=== PATIENT | male | born 1945 | race Caucasian/White ===

== ENCOUNTER 2016-08-26 14:34 | Day surgery (SDC) | payer OTHER ==
[~2016-08-26 14:34] MED LIST: ADVAI250I PO; ALPR.25 PO; CARV12.5 PO; NORC7.5T PO; RAMI5CAP36 PO
[2016-08-26 14:59] VITALS: BP 145/84; PULSE 66; RESP 18; TEMP 98; O2SAT 97
[2016-08-26] MEDS ORDERED: ADVA250A INH (15:05)
[2016-08-26] MEDS ORDERED: ASPI81CH37 CHEW (15:05)
[2016-08-26] MEDS ORDERED: ALPR.25 PO (15:05)
[2016-08-26] MEDS ORDERED: CARV12.5 PO (15:05)
[2016-08-26] MEDS ORDERED: HYDR-3580 PO (15:05)
[2016-08-26] MEDS ORDERED: RAMI5CAP PO (15:05)
--- NOTE | 2016-08-26 18:10 | RADRPT ---
EXAM DATE/TIME: 08/26/2016 14:59 [facility] COMPARISON : No previous studies available for comparison. INDICATIONS : Consult for AAA repair OBJECTIVE: Temperature: 98.0 Heart Rate: 66 Blood Pressure: 145/84 Respiratory: 18 Oximetry: 97 PNEUMONIA VACCINE: YES HISTORY OF PRESENT ILLNESS: Abdominal aortic aneurysm, reportedly increased in size from comparison CT exams. PAST MEDICAL HISTORY : 1. Hypertension. 2. Cardiovascular disease. 3. Congestive heart failure. 4. Chronic obstructive pulmonary disease, oxygen dependent 5. Aneurysm, abdominal. PAST SURGICAL HISTORY : 1. pacemaker SOCIAL HISTORY : ALLERGIES: 1. NKDA MEDICATIONS: 1. [id number] mg q.d. 2. xanax 0.25 mg prn 3. Coreg (Carvedilol) 12.5 mg b.i.d. 4. advair diskus 1 puff b.i.d. 5. norco 1 tab prn 6. ramipril 5 mg b.i.d. IMAGING STUDIES: CT examination of the abdomen and pelvis from [facility] reveals a 5.5 cm abdominal aortic aneurysm with a couple of areas of focal lobular outpouching superimposed upon diffuse fusiform dilat ation of the infrarenal segment. The patient has a sizable accessory renal artery providing flow to t he left kidney arising at the midportion of the aneurysm. This vessel would need to be sacrificed for aneurysm repair. ASSESSMENT: Patient with significant cardiac and pulmonary history, oxygen dependent with a pacemaker. The patien t has additionally had anesthesia problems in the past. The patient has some degree of baseline renal insufficiency and we will need to sacrifice one of 2 left renal arteries in order to adequately excl ude his aneurysm. These things considered, I think he's at very high risk for significant morbidity a ssociated with aneurysm repair. PLAN: I would recommend short interval followup noncontrast CT examination of the abdomen and pelvis in 2-3 months to reassess the aneurysm for changes in size and configuration which might additionally eleva te our concern for rupture risk. Hopefully, the patient will remain stable and not require treatment. Thanks very much, Dr. Patrick, for asking me to assist in the care of this pleasant gentleman. Donald Granger MD on August 26, 2016 at 17:48 Board Certified Radiologist. This report was verified electronically.
== END 2016-08-26 15:40 | disposition home or self-care (01) ==
LOC: HROP 14:34 → HRIP 14:38 → HROP 15:40
DX: I71.4 Abdominal aortic aneurysm, without rupture (principal); I11.0 Hypertensive heart disease with heart failure; I50.9 Heart failure, unspecified; J44.9 Chronic obstructive pulmonary disease, unspecified; Z99.81 Dependence on supplemental oxygen
CPT/HCPCS: 99213; G0463

== ENCOUNTER 2016-10-25 17:07 | Observation (INO) | payer OTHER, MEDICAID ==
[~2016-10-25] VITALS: Ht 177.8 cm; Wt 80.0 kg
[~2016-10-25 17:07] MED LIST changes: +ADVA250A INH; -ADVAI250I PO; +ASPI81CH37 CHEW; +HYDR-3580 PO; +IOHEXOL 350 MG/ML 10 ML VIAL (for RAD DIAG) IVCONTRAST ONE; -NORC7.5T PO; +RAMI5CAP PO; -RAMI5CAP36 PO
[2016-10-25 17:15] VITALS: BP 139/60; PULSE 72; RESP 18; TEMP 98.1; O2SAT 98
[2016-10-25 17:22] VITALS: BP 147/65; PULSE 71; RESP 18; TEMP 98.6; O2SAT 100
[2016-10-25 17:29] VITALS: BP_SYST 147; BP_SYST 167; BP_DIAS 65; BP_DIAS 67; PULSE 67; RESP 18; O2SAT 100
[2016-10-25] MEDS ORDERED: SODIUM CHLORIDE 0.9% FLUSH 10 ML FLUSH IVF PRN (17:30)
[2016-10-25] MEDS ORDERED: ASPIRIN 81 MG CHEW TAB PO ONE (17:30)
[2016-10-25] MEDS ORDERED: NITROGLYCERIN 2% OINT 1 GM PACKET TOP ONE (17:30)
--- NOTE | 2016-10-25 18:06 | PD ---
HPI Chief Complaint: Chest Pain Time Seen by Provider: 17:17 Travel History International Travel<30 days: No Contact w/Intl Traveler<30days: No Traveled to known affect area: No History of Present Illness HPI Patient is a 70-year-old male with a history of coronary disease pacemaker followed by Dr. Cevallos presents emergency Department with chest pain intermittent states feels like squeezing on the left side of his chest down to his left shoulder. Patient states the pain was so intense that he had a syncopal episode yesterday. On arrival the patient states she's not having any chest pain. He states pain is been relieved by resting, with no shortness of breath no nausea no vomiting. States he also has a history of an aortic aneurysm. Denies any fever denies any cough congestion. Cannot think of any exacerbating conditions. PFSH Past Medical History Hx Anticoagulant Therapy: Yes AAA: Yes Cardiac Catheterization: Yes Cardiovascular Problems: Yes COPD: Yes Respiratory: Yes (COPD) Past Surgical History Other Surgery: Yes (PACEMAKER ) Social History Alcohol Use: No Tobacco Use: No Substance Use: No Allergies-Medications (Allergen,Severity, Reaction): Coded Allergies: No Known Allergies (Unverified , 10/25/16) Reported Meds & Prescriptions Reported Meds & Active Scripts Active Reported Ramipril 5 Mg Cap 5 Mg PO BID Hydrocodone-Acetaminophen 7.5-325 mg Tab 1 Tab PO Q6H PRN Advair Diskus Inh (Fluticasone-Salmeterol Inh) 250-50 Mcg/Blist Aer 1 Puff INH BID Rinse mouth after use. Coreg (Carvedilol) 12.5 Mg Tab 12.5 Mg PO BID Xanax (Alprazolam) 0.25 Mg Tab 0.25 Mg PO TID PRN Aspirin Low Dose (Aspirin) 81 Mg Chew 81 Mg CHEW DAILY Review of Systems Except as stated in HPI: all other systems reviewed are Neg Physical Exam Narrative GENERAL: Well-developed well-nourished, elderly male in no obvious distress. SKIN: Focused skin assessment warm/dry. HEAD: Atraumatic. Normocephalic. EYES: Pupils equal and round. No scleral icterus. No injection or drainage. ENT: No nasal bleeding or discharge. Mucous membranes pink and moist. NECK: Trachea midline. No JVD. CARDIOVASCULAR: Regular rate and rhythm. No murmur appreciated. Left-sided pacemaker site clean dry and intact and well-healed. 2+ bilaterally equal pulses in all 4 extremity's. RESPIRATORY: No accessory muscle use. Clear to auscultation. Breath sounds equal bilaterally. GASTROINTESTINAL: Abdomen soft, non-tender, nondistended. Hepatic and splenic margins not palpable. MUSCULOSKELETAL: No obvious deformities. No clubbing. No cyanosis. Trace edema equal and bilateral lower extremities. NEUROLOGICAL: Awake and alert. No obvious cranial nerve deficits. Motor grossly within normal limits. Normal speech. PSYCHIATRIC: Appropriate mood and affect; insight and judgment normal. Data Data Last Documented VS Vital Signs Date Time Temp Pulse Resp B/P (MAP) Pulse Ox O2 Delivery O2 Flow Rate FiO2 10/25/16 17:29 67 18 147/65 (92) 100 Nasal Cannula 3.50 167/67 (100) 10/25/16 17:22 98.6 Orders Orders Electrocardiogram (10/25/16 17:26) Basic Metabolic Panel (Bmp) (10/25/16 17:26) Ckmb (Isoenzyme) Profile (10/25/16 17:26) Complete Blood Count With Diff (10/25/16 17:26) Magnesium (Mg) (10/25/16 17:26) Prothrombin Time / Inr (Pt) (10/25/16 17:26) Act Partial Throm Time (Ptt) (10/25/16 17:26) Troponin I (10/25/16 17:26) Chest, Single Ap (10/25/16 17:26) Ecg Monitoring (10/25/16 17:26) Bilateral Bp Monitoring (10/25/16 17:26) Iv Access Insert/Monitor (10/25/16 17:26) Oximetry (10/25/16 17:26) Oxygen Administration (10/25/16 17:26) Aspirin Chew (Aspirin Chew) (10/25/16 17:30) Nitroglycerin 2% Oint (Nitroglycerin 2% (10/25/16 17:30) Sodium Chloride 0.9% Flush (Ns Flush) (10/25/16 17:30) Activity Bed Rest With Brp (10/25/16 18:52) Vital Signs (Adult) Q4H (10/25/16 18:52) Cardiac Rhythm .As Directed (10/25/16 18:52) Notify Dr: Other .PRN (10/25/16 18:52) Notify Parameters (10/25/16 18:52) Resp Oxygen Nasal Cannula (10/25/16 ) Diet Heart Healthy (10/25/16 Dinner) Ckmb (Isoenzyme) Profile (10/25/16 21:00) Ckmb (Isoenzyme) Profile (10/26/16 00:00) Troponin I (10/25/16 21:00) Troponin I (10/26/16 00:00) Electrocardiogram (10/25/16 21:00) Electrocardiogram (10/26/16 00:00) ^ Obtain (10/25/16 18:52) Sodium Chloride 0.9% Flush (Ns Flush) (10/25/16 19:00) Sodium Chloride 0.9% Flush (Ns Flush) (10/25/16 21:00) Email Specialist / Telemetry [id number] (10/25/16 18:52) Admit Order (Ed Use Only) (10/25/16 ) Labs Laboratory Tests Test 10/25/16 17:30 White Blood Count 4.5 TH/MM3 Red Blood Count 3.47 MIL/MM3 Hemoglobin 11.1 GM/DL Hematocrit 33.4 % Mean Corpuscular Volume 96.2 FL Mean Corpuscular Hemoglobin 32.1 PG Mean Corpuscular Hemoglobin Concent 33.4 % Red Cell Distribution Width 13.1 % Platelet Count 176 TH/MM3 Mean Platelet Volume 8.0 FL Neutrophils (%) (Auto) 59.9 % Lymphocytes (%) (Auto) 25.4 % Monocytes (%) (Auto) 10.1 % Eosinophils (%) (Auto) 3.6 % Basophils (%) (Auto) 1.0 % Neutrophils # (Auto) 2.7 TH/MM3 Lymphocytes # (Auto) 1.1 TH/MM3 Monocytes # (Auto) 0.5 TH/MM3 Eosinophils # (Auto) 0.2 TH/MM3 Basophils # (Auto) 0.0 TH/MM3 CBC Comment DIFF FINAL Differential Comment Prothrombin Time 11.5 SEC Prothromb Time International Ratio 1.0 RATIO Activated Partial Thromboplast Time 29.9 SEC Blood Urea Nitrogen 21 MG/DL Creatinine 0.97 MG/DL Random Glucose 84 MG/DL Calcium Level 8.0 MG/DL Magnesium Level 1.8 MG/DL Sodium Level 141 MEQ/L Potassium Level 3.4 MEQ/L Chloride Level 100 MEQ/L Carbon Dioxide Level 36.8 MEQ/L Anion Gap 4 MEQ/L Estimat Glomerular Filtration Rate 76 ML/MIN Total Creatine Kinase 42 U/L Troponin I 0.02 NG/ML MDM Medical Decision Making Medical Screen Exam Complete: Yes Emergency Medical Condition: Yes Interpretation(s) EKG shows AV paced rhythm. Differential Diagnosis ACS, AMI, chest wall pain, pneumonia. Narrative Course Patient roomed in emergency department, chest pain-free on arrival was given aspirin and Nitropaste. Last 24 hours Impressions Chest X-Ray 10/25/16 1726 Signed Impressions: Service Date/Time: Tuesday, October 25, 2016 18:21 - CONCLUSION: No acute cardiopulmonary disease identified. Darrick Mcghee MD Patient initial workup including troponin EKG negative. will place orders for chest pain observation. Diagnosis Primary Impression: Chest pain Admitting Information Admitting Physician Requests: Observation Condition: Stable Harish Montoya MD Oct 25, 2016 18:06
[2016-10-25 18:17] LABS: AUTOMATED NEUTROPHIL # 2.7 TH/MM3 (1.8-7.7); EOSINOPHIL # 0.2 TH/MM3 (0-0.4); EOSINOPHIL % 3.6 % (0.0-4.0); HEMATOCRIT 33.4 % (39.0-51.0); LYMPH % 25.4 % (9.0-44.0); LYMPHOCYTE # 1.1 TH/MM3 (1.0-4.8); MEAN CELL VOLUME 96.2 FL (80.0-100.0); MEAN CORPUSCULAR HEMOGLOBIN 32.1 PG (27.0-34.0); MEAN CORPUSCULAR HGB CONC 33.4 % (32.0-36.0); MONO % 10.1 % (0.0-8.0); NEUT % 59.9 % (16.0-70.0); PLATELET COUNT 176 TH/MM3 (150-450); RED BLOOD COUNT 3.47 MIL/MM3 (4.50-5.90); RED CELL DISTRIBUTION WIDTH 13.1 % (11.6-17.2); WHITE BLOOD COUNT 4.5 TH/MM3 (4.0-11.0)
[2016-10-25 18:18] LABS: HEMO FLAGS DIFF FINAL
--- NOTE | 2016-10-25 18:27 | RADRPT ---
EXAM DATE/TIME: 10/25/2016 18:21 [facility] COMPARISON: No previous studies available for comparison. INDICATIONS : Chest pain and shortness of breath. MEDICAL HISTORY : None. SURGICAL HISTORY : Pacemaker. Cardiac stent. ENCOUNTER: Initial ACUITY: 4 - 6 days PAIN SCORE: 6/10 LOCATION: chest FINDINGS: Single AP view of the chest. AICD is in place. Surgical hardware in the left humerus. The lungs are c lear. Cardiomediastinal silhouette within normal limits. No evidence of pleural effusion or pneumotho rax. CONCLUSION: No acute cardiopulmonary disease identified. Darrick Mcghee MD on October 25, 2016 at 18:25 Board Certified Radiologist. This report was verified electronically.
[2016-10-25 18:28] LABS: BICARBONATE 36.8 MEQ/L (21.0-32.0); MAGNESIUM 1.8 MG/DL (1.5-2.5); POTASSIUM 3.4 MEQ/L (3.5-5.1)
[2016-10-25 18:29] LABS: APTT (PATIENT) 29.9 SEC (24.3-30.1); PROTHROMBIN TIME - PATIENT 11.5 SEC (9.8-11.6)
[2016-10-25] MEDS ORDERED: SODIUM CHLORIDE 0.9% FLUSH 10 ML FLUSH IV FLUSH PRN (19:00)
[2016-10-25 19:26] VITALS: BP 187/81; PULSE 65; RESP 18; TEMP 98.7; O2SAT 98
[2016-10-25 20:16] VITALS: BP 181/79; PULSE 81; RESP 18; TEMP 98.1; O2SAT 97
[2016-10-25] MEDS ORDERED: RAMIPRIL 5 MG CAP PO SCH (21:00)
[2016-10-25] MEDS: CARVEDILOL 12.5 MG TAB PO SCH (21:00)
[2016-10-25] MEDS ORDERED: ALPRAZolam 0.25 MG TAB PO PRN (21:15)
[2016-10-25] MEDS ORDERED: TEMAZEPAM 15 MG CAP PO PRN (21:15)
[2016-10-25] MEDS: SODIUM CHLORIDE 0.9% FLUSH 10 ML FLUSH IV FLUSH SCH (21:50)
[2016-10-25] MEDS: MORPHINE SULFATE 4 MG/ML INJ IV PUSH PRN (21:51)
[2016-10-25 23:56] VITALS: BP 142/65; PULSE 64; RESP 18; TEMP 98; O2SAT 97
[2016-10-26] VITALS (8 sets, daily range): BP systolic 124–168; BP diastolic 58–72; PULSE 59–80; RESP 16–18; TEMP 98.2–98.8; O2SAT 96–98
[2016-10-26] MEDS: MORPHINE SULFATE 4 MG/ML INJ IV PUSH PRN (03:32)
[2016-10-26] MEDS: SODIUM CHLORIDE 0.9% FLUSH 10 ML FLUSH IV FLUSH SCH (09:35)
[2016-10-26] MEDS: CARVEDILOL 12.5 MG TAB PO SCH (09:35)
--- NOTE | 2016-10-26 09:59 | EKG ---
Date Performed: 10/25/2016 Time Performed: 17:15:36 PTAGE: 70 years EKG: ELECTRONIC ATRIAL PACEMAKER ELECTRONIC VENTRICULAR PACEMAKER ABNORMAL RHYTHM ECG INTERPRETA TION BASED ON A DEFAULT AGE OF 40 YEARS NO PREVIOUS TRACING DOCTOR: Sriram Rodriguez Interpretating Date/Time 10/26/2016 12:16:47
--- NOTE | 2016-10-26 09:59 | EKG ---
Date Performed: 10/25/2016 Time Performed: 21:03:04 PTAGE: 70 years EKG: ELECTRONIC ATRIAL PACEMAKER ELECTRONIC VENTRICULAR PACEMAKER ABNORMAL RHYTHM ECG NO PREVIOUS TRACING Compared to prior tracing no significant change DOCTOR: Sriram Rodriguez Interpretating Date/Time 10/26/2016 12:16:59
--- NOTE | 2016-10-26 09:59 | EKG ---
Date Performed: 10/26/2016 Time Performed: 00:08:35 PTAGE: 70 years EKG: ELECTRONIC ATRIAL PACEMAKER ELECTRONIC VENTRICULAR PACEMAKER ABNORMAL RHYTHM ECG PREVIOUS TRACING : 10/25/2016 21.03 Compared to prior tracing no significant change DOCTOR: Sriram Rodriguez Interpretating Date/Time 10/26/2016 12:17:23
[2016-10-26] MEDS ORDERED: SODIUM CHLORIDE 0.9% FLUSH 10 ML FLUSH IV FLUSH PRN (10:30)
[2016-10-26] MEDS ORDERED: NICOTINE 14 MG/24 HR PATCH T-DERMAL SCH (10:30)
[2016-10-26] MEDS ORDERED: ACETAMINOPHEN 325 MG TAB PO PRN ×2 (10:30)
[2016-10-26] MEDS ORDERED: NICOTINE 14 MG/24 HR PATCH T-DERMAL ONE (10:30)
[2016-10-26] MEDS ORDERED: LACTULOSE SYRUP 20 GM/30 ML CUP PO PRN (10:30)
[2016-10-26] MEDS ORDERED: ONDANSETRON HCL 4 MG/2 ML VIAL IVP PRN (10:30)
[2016-10-26] MEDS ORDERED: NALOXONE HCL 0.4 MG/ML AMP IV PRN (10:30)
[2016-10-26] MEDS ORDERED: guaiFENesin E.R. 600 MG TAB PO SCH (10:30)
[2016-10-26] MEDS ORDERED: oxyCODONE/ACETAMINOPHEN 5 MG/325 MG TAB PO PRN (10:30)
[2016-10-26] MEDS ORDERED: MAGNESIUM HYDROXIDE SUSP 30 ML CUP PO PRN (10:30)
[2016-10-26] MEDS ORDERED: PROCHLORPERAZINE 25 MG SUPP RECTAL PRN (10:30)
[2016-10-26] MEDS ORDERED: oxyCODONE/ACETAMINOPHEN 10 MG/325 MG TAB PO PRN (10:30)
[2016-10-26] MEDS ORDERED: RESP: ALBUTEROL 2.5 MG/IPRATROPIUM 0.5 MG NEB (PRN) NEB (10:30)
[2016-10-26] MEDS ORDERED: DEXTROSE 50% IN WATER 50 ML VIAL(D50) IV PRN (10:30)
[2016-10-26] MEDS ORDERED: GLUCAGON 1 MG/ML VIAL OTHER PRN (10:30)
[2016-10-26] MEDS ORDERED: SENNOSIDES 8.6 MG TAB PO PRN (10:30)
[2016-10-26] MEDS ORDERED: MORPHINE SULFATE 4 MG/ML INJ IV PRN ×2 (10:30)
[2016-10-26] MEDS ORDERED: ACETAMINOPHEN/HYDROcodone 325 MG/7.5 MG TAB PO PRN (10:30)
[2016-10-26] MEDS ORDERED: BISACODYL 10 MG SUPP RECTAL PRN (10:30)
[2016-10-26] MEDS ORDERED: ALPRAZolam 0.25 MG TAB PO PRN (10:30)
--- NOTE | 2016-10-26 10:44 | HHI.HP ---
[facility] Primary Care Physician DR ADRIA HERNANDEZ Admission Diagnosis Chest Pain Diagnoses: (1) Diabetes Diagnosis: Secondary (2) Tobacco abuse Diagnosis: Secondary (3) Chest pain Diagnosis: Principal (4) Hypoxia Diagnosis: Secondary (5) COPD (chronic obstructive pulmonary disease) (6) Anxiety Diagnosis: Secondary (7) AAA (abdominal aortic aneurysm) without rupture Diagnosis: Secondary (8) Requires supplemental oxygen Diagnosis: Secondary Chief Complaint: Chest pain Travel History International Travel<30 Days: No Contact w/Intl Traveler <30 Da: No Traveled to Known Affected Are: No History of Present Illness Patient is 68-year-old male with a history of coronary artery disease , a pacemaker, followed by Dr. Francisca ECKERT who presented to the emergency department with chest pain intermittent. He states that it feels like squeezing on the left side of his chest and goes into the left shoulder. Patient states the pain was so intense that he had a syncopal episode yesterday. On arrival the patient states he is not having any chest pain anymore. He states the pain has been relieved by resting. With no shortness of breath no nausea no vomiting. Has a history of aortic aneurysm. Denies any fever and has chronic cough congestion cannot think of any exacerbating conditions recently stopped smoking Review of Systems Constitutional: DENIES: Diaphoretic episodes, Fatigue, Fever, Weight gain, Weight loss, Chills, Dizziness, Change in appetite Endocrine: DENIES: Heat/cold intolerance, Polydipsia, Polyphagia Eyes: DENIES: Blurred vision, Diplopia, Eye inflammation, Eye pain, Vision loss , Photosensitivity Ears, nose, mouth, throat: COMPLAINS OF: Nasal discharge, DENIES: Tinnitus, Hearing loss, Vertigo, Oral lesions, Throat pain, Hoarseness, Ear Pain Respiratory: COMPLAINS OF: Cough, Snoring, Sputum production, Shortness of breath, DENIES: Apneas, Wheezing, Hemoptysis Cardiovascular: COMPLAINS OF: Chest pain, Syncope, DENIES: Palpitations, Dyspnea on Exertion, PND, Lower Extremity Edema, Orthopnea, Claudication Gastrointestinal: DENIES: Abdominal pain, Black stools, Bloody stools, Constipation, Diarrhea, Nausea, Vomiting, Difficulty Swallowing, Anorexia Genitourinary: DENIES: Sexual dysfunction, Urinary frequency, Urinary incontinence Musculoskeletal: DENIES: Joint pain, Muscle aches, Stiffness, Joint Swelling, Back pain Integumentary: DENIES: Abnormal pigmentation, Nail changes Hematologic/lymphatic: DENIES: Bruising, Lymphadenopathy Immunologic/allergic: DENIES: Eczema, Urticaria Neurologic: DENIES: Abnormal gait, Headache, Localized weakness, Paresthesias, Seizures, Speech Problems, Tremor Psychiatric: COMPLAINS OF: Anxiety, Depression, DENIES: Confusion, Mood changes , Hallucinations, Agitation, Suicidal Ideation, Homicidal Ideation Past Family Social History Past Medical History Abdominal aortic aneurysm Coronary artery disease COPD and tobacco abuse hypertension Hyperlipidemia Anxiety Past Surgical History Permanent pacemaker Reported Medications Reported Meds & Active Scripts Active Reported Ramipril 5 Mg Cap 5 Mg PO BID Hydrocodone-Acetaminophen 7.5-325 mg Tab 1 Tab PO Q6H PRN Advair Diskus Inh (Fluticasone-Salmeterol Inh) 250-50 Mcg/Blist Aer 1 Puff INH BID Rinse mouth after use. Coreg (Carvedilol) 12.5 Mg Tab 12.5 Mg PO BID Xanax (Alprazolam) 0.25 Mg Tab 0.25 Mg PO TID PRN Aspirin Low Dose (Aspirin) 81 Mg Chew 81 Mg CHEW DAILY Allergies: Coded Allergies: No Known Allergies (Unverified , 10/25/16) Active Ordered Medications Current Medications Aspirin (Aspirin Chew) 324 mg ONCE ONCE PO Last administered on 10/25/16 17:34 ; Start 10/25/16 at 17:30; Stop 10/25/16 at 17:31; Status DC Nitroglycerin (Nitroglycerin 2% Oint) 1 inch ONCE ONCE TOP Last administered on 10/25/16 17:34; Start 10/25/16 at 17:30; Stop 10/25/16 at 17:31; Status DC Sodium Chloride (NS Flush) 2 ml UNSCH PRN IVF FLUSH AFTER USING IV ACCESS; Start 10/25/16 at 17:30 Sodium Chloride (NS Flush) 2 ml UNSCH PRN IV FLUSH FLUSH AFTER USING IV ACCESS ; Start 10/25/16 at 19:00 Sodium Chloride (NS Flush) 2 ml BID IV FLUSH Last administered on 10/26/16 09: 35; Start 10/25/16 at 21:00 Ramipril (Altace) 5 mg BID PO Last administered on 10/25/16 21:50; Start at 21:00 Morphine Sulfate (Morphine Inj) 2 mg Q4H PRN IV PUSH PAIN SCALE ABOVE 4 Last administered on 10/26/16 03:32; Start 10/25/16 at 21:00 Carvedilol (Coreg) 12.5 mg BID PO Last administered on 10/26/16 09:35; Start 10/25/16 at 21:00 Temazepam (Restoril) 15 mg HS PRN PO INSOMNIA Last administered on 10/26/16 00 :16; Start 10/25/16 at 21:15 Alprazolam (Xanax) 0.25 mg HS PRN PO ANXIETY; Start 10/25/16 at 21:15 Family History Hypertension suspect diabetes probably coronary disease cholesterol issues Social History Former smoker states he quit couple days ago used to smoke at least a pack a day for an extended period time denies any alcohol or illicits Physical Exam Vital Signs Vital Signs Date Time Temp Pulse Resp B/P (MAP) Pulse Ox O2 Delivery O2 Flow Rate FiO2 10/26/16 09:51 Nasal Cannula 3.00 10/26/16 07:18 98.4 59 16 168/72 (104) 96 10/26/16 06:23 Nasal Cannula 3.00 10/26/16 03:59 18 10/26/16 03:48 98.2 69 18 124/58 (80) 97 10/26/16 03:31 71 10/26/16 01:11 76 10/25/16 23:56 98.0 64 18 142/65 (90) 97 10/25/16 20:16 98.1 81 18 181/79 (113) 97 10/25/16 19:26 98.7 65 18 187/81 (116) 98 Room Air 10/25/16 17:29 67 18 147/65 (92) 100 Nasal Cannula 3.50 167/67 (100) 10/25/16 17:29 (92) Nasal Cannula 3.50 10/25/16 17:29 100 Nasal Cannula 3.50 10/25/16 17:22 67 18 100 Nasal Cannula 3.50 10/25/16 17:22 98.6 71 18 147/65 (92) 100 Nasal Cannula 3.50 10/25/16 17:15 98.1 72 18 139/60 (86) 98 Physical Exam GENERAL: This is a well-nourished, well-developed patient, in no apparent distress. SKIN: No rashes, ecchymoses or lesions. Cool and dry. HEAD: Atraumatic. Normocephalic. No temporal or scalp tenderness. EYES: Pupils equal round and reactive. Extraocular motions intact. No scleral icterus. No injection or drainage. ENT: Nose without bleeding, purulent drainage or septal hematoma. Throat without erythema, tonsillar hypertrophy or exudate. Uvula midline. Airway patent. NECK: Trachea midline. No JVD or lymphadenopathy. Supple, nontender, no meningeal signs. CARDIOVASCULAR: Regular rate and rhythm without murmurs, gallops, or rubs. S1 and S2 no S3 or S4 RESPIRATORY: Clear to auscultation. Breath sounds equal bilaterally. No wheezes , rales, or rhonchi. Coarse breath sounds bilaterally GASTROINTESTINAL: Abdomen soft, non-tender, nondistended. No hepato-splenomegaly , or palpable masses. No guarding. MUSCULOSKELETAL: Extremities without clubbing, cyanosis, or edema. No joint tenderness, effusion, or edema noted. No calf tenderness. Negative Homans sign bilaterally. NEUROLOGICAL: Awake and alert. Cranial nerves II through XII intact. Motor and sensory grossly within normal limits. Five out of 5 muscle strength in all muscle groups. Normal speech. Insight and judgment are good mood and behavior are somewhat appropriate Laboratory Laboratory Tests Test 10/25/16 17:30 10/25/16 21:05 10/26/16 00:15 White Blood Count 4.5 Red Blood Count 3.47 Hemoglobin 11.1 Hematocrit 33.4 Mean Corpuscular Volume 96.2 Mean Corpuscular Hemoglobin 32.1 Mean Corpuscular Hemoglobin Concent 33.4 Red Cell Distribution Width 13.1 Platelet Count 176 Mean Platelet Volume 8.0 Neutrophils (%) (Auto) 59.9 Lymphocytes (%) (Auto) 25.4 Monocytes (%) (Auto) 10.1 Eosinophils (%) (Auto) 3.6 Basophils (%) (Auto) 1.0 Neutrophils # (Auto) 2.7 Lymphocytes # (Auto) 1.1 Monocytes # (Auto) 0.5 Eosinophils # (Auto) 0.2 Basophils # (Auto) 0.0 CBC Comment DIFF FINAL Differential Comment Prothrombin Time 11.5 Prothromb Time International Ratio 1.0 Activated Partial Thromboplast Time 29.9 Blood Urea Nitrogen 21 Creatinine 0.97 Random Glucose 84 Calcium Level 8.0 Magnesium Level 1.8 Sodium Level 141 Potassium Level 3.4 Chloride Level 100 Carbon Dioxide Level 36.8 Anion Gap 4 Estimat Glomerular Filtration Rate 76 Total Creatine Kinase 42 43 43 Troponin I 0.02 0.02 0.02 Result Diagram: 10/25/16172910/25/161729 Imaging Last Impressions Chest X-Ray 10/25/161725 Signed Impressions: Service Date/Time: Tuesday, October 25, 2016 18:21 - CONCLUSION: No acute cardiopulmonary disease identified. MD Yissel Tracy VTE Risk Assessment Yissel VTE Risk Assessment: No/Low Risk (score <= 1) VTE Pharm Contraindication: High risk for bleeding Ysisel Risk Assessment Model Point Value = 1 Point Value = 2 Point Value = 3 Point Value = 5 Age 41-60 Minor surgery BMI > 25 kg/m2 Swollen legs Varicose veins or History of unexplained or recurrent spontaneous Oral contraceptives or hormone replacement Sepsis (< 1 month) Serious lung disease, including pneumonia (< 1 month) Abnormal pulmonary function Acute myocardial infarction Congestive heart failure (< 1 month) History of inflammatory bowel disease Medical patient at bed rest Age 61-74 Arthroscopic surgery Major open surgery (> 45 min) Laparoscopic surgery (> 45 min) Malignancy Confined to bed (> 72 hours) Immobilizing plaster cast Central venous access Age >= 75 History of VTE Family history of VTE Factor V Leiden Prothrombin [id number] Lupus anticoagulant Anticardiolipin antibodies Elevated serum homocysteine Heparin-induced thrombocytopenia Other congenital or acquired thrombophilia Stroke (< 1 month) Elective arthroplasty Hip, pelvis, or leg fracture Acute spinal cord injury (< 1 month) Prophylaxis Regimen Total Risk Factor Score Risk Level Prophylaxis Regimen 0-1 Low Early ambulation 2 Moderate Order ONE of the following: *Sequential Compression Device (SCD) *Heparin 5000 units SQ BID 3-4 Higher Order ONE of the following medications: *Heparin 5000 units SQ TID *Enoxaparin/Lovenox 40 mg SQ daily (WT < 150 kg, CrCl > 30 mL/min) *Enoxaparin/Lovenox 30 mg SQ daily (WT < 150 kg, CrCl > 10-29 mL/min) *Enoxaparin/Lovenox 30 mg SQ BID (WT < 150 kg, CrCl > 30 mL/min) AND/OR *Sequential Compression Device (SCD) 5 or more Highest Order ONE of the following medications: *Heparin 5000 units SQ TID (Preferred with Epidurals) *Enoxaparin/Lovenox 40 mg SQ daily (WT < 150 kg, CrCl > 30 mL/min) *Enoxaparin/Lovenox 30 mg SQ daily (WT < 150 kg, CrCl > 10-29 mL/min) *Enoxaparin/Lovenox 30 mg SQ BID (WT < 150 kg, CrCl > 30 mL/min) AND *Sequential Compression Device (SCD) Assessment and Plan Problem List: (1) Requires supplemental oxygen ICD Code: Z99.81 - Dependence on supplemental oxygen Status: Acute (2) Anxiety ICD Code: F41.9 - Anxiety disorder, unspecified (3) AAA (abdominal aortic aneurysm) without rupture ICD Code: I71.4 - Abdominal aortic aneurysm, without rupture (4) Hypoxia ICD Code: R09.02 - Hypoxemia Status: Acute (5) Diabetes ICD Code: E11.9 - Type 2 diabetes mellitus without complications (6) Tobacco abuse ICD Code: Z72.0 - Tobacco use (7) COPD (chronic obstructive pulmonary disease) ICD Code: J44.9 - Chronic obstructive pulmonary disease, unspecified Status: Acute (8) Chest pain ICD Code: R07.9 - Chest pain, unspecified Status: Acute Assessment and Plan Chest pain atypical trend troponins Abdominal aortic aneurysm consult surgery await for their opinion COPD tobacco abuse recommend smoking cessation continue on DuoNeb's continue on Mucinex continue on incentive spirometry Anxiety continue home medications Hypertension continue on his home medications Pain control continue home medications Code Status Full code Discussed Condition With Discussed with patient and RN and chest pain physician investment sales assistant Consult vascular surgery Foster Alarcon DO Oct 26, 2016 10:44
[2016-10-26] MEDS ORDERED: INSULIN ASPART SUPPLEMENTAL SCALE SQ SCH (11:00)
[2016-10-26] MEDS ORDERED: RAMIPRIL 5 MG CAP PO SCH ×2 (11:00→21:00)
[2016-10-26] MEDS ORDERED: TIOTROPIUM BROMIDE 18 MCG INH INH SCH (12:00)
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
--- NOTE | 2016-10-26 12:40 | PD.CAR.PN ---
CVT Progress Note Subjective/Hospital Course: 70-year-old with known abdominal aortic aneurysm. Repeat CTA does not reveal major change and this is a stable aneurysm a current time. From anatomic point patient would not be a candidate for endovascular repair due to the fact that this is a juxta renal aneurysm and there is barely any neck to anchored the endovascular graft. Unfortunately from physiologic point, severest end-stage COPD CHF and coronary artery disease and continues tobacco abuse this patient is a very poor candidate for even endovascular repair, let alone on open one. Once intubated patient will not come off the respirator probably at any time and will remain ventilatory dependent indefinitely. In addition there is a high risk of renal failure and on table mortality is high. Therefore at this point this is a stable aneurysm and cardiac workup can proceed as deemed necessary by cardiology Full consult dictated Thanks J Objective: Vital Signs Date Time Temp Pulse Resp B/P (MAP) Pulse Ox O2 Delivery O2 Flow Rate FiO2 10/26/16 11:02 10/26/16 09:51 Nasal Cannula 3.00 10/26/16 07:18 98.4 59 16 168/72 (104) 96 10/26/16 06:23 Nasal Cannula 3.00 10/26/16 03:59 18 10/26/16 03:48 98.2 69 18 124/58 (80) 97 10/26/16 03:31 71 10/26/16 01:11 76 10/25/16 23:56 98.0 64 18 142/65 (90) 97 10/25/16 20:16 98.1 81 18 181/79 (113) 97 10/25/16 19:26 98.7 65 18 187/81 (116) 98 Room Air 10/25/16 17:29 67 18 147/65 (92) 100 Nasal Cannula 3.50 167/67 (100) 10/25/16 17:29 (92) Nasal Cannula 3.50 10/25/16 17:29 100 Nasal Cannula 3.50 10/25/16 17:22 67 18 100 Nasal Cannula 3.50 10/25/16 17:22 98.6 71 18 147/65 (92) 100 Nasal Cannula 3.50 10/25/16 17:15 98.1 72 18 139/60 (86) 98 Labs: Laboratory Tests Test 10/26/16 11:22 Total Creatine Kinase 41 U/L (39-308) Troponin I 0.02 NG/ML (0.02-0.05) Result Diagram: 10/25/16 1730 10/25/16 1730 Jhonny Gupta MD Oct 26, 2016 12:40
--- NOTE | 2016-10-26 13:16 | RADRPT ---
EXAM DATE/TIME: 10/26/2016 11:06 [facility] COMPARISON: No previous studies available for comparison. INDICATIONS : Evaluate abdominal aortic aneurysm. IV CONTRAST: 95 cc Omnipaque 350 (iohexol) IV ORAL CONTRAST: No oral contrast ingested. RADIATION DOSE: 15.22 CTDIvol (mGy) MEDICAL HISTORY : Cardiovascular disease. Aneurysm, abdominal. Chronic obstructive pulmonary disease.Hypertension. SURGICAL HISTORY : Pacemaker. ENCOUNTER: Initial ACUITY: 1 day PAIN SCALE: 0/10 LOCATION: abdomen TECHNIQUE: Volumetric scanning was performed using a multi-row detector CT scanner. The data was post processed with a variety of visualization algorithms including full volume maximum intensity projection, multi -planar sliding thin slab reformation, curved planar reformation, and surface rendering techniques. Using automated exposure control and adjustment of the mA and/or kV according to patient size, radiat ion dose was kept as low as reasonably achievable to obtain optimal diagnostic quality images. DICOM format image data is available electronically for review and comparison. FINDINGS: ABDOMINAL AORTA: Advanced calcific atherosclerotic disease is seen throughout the abdominal aorta and its branches. Co mplex aneurysmal enlargement is identified of the infrarenal abdominal aorta. There is generalized an eurysmal enlargement plus small saccular projections extending beyond the main aneurysm. The aneurysm measures 5.8 x 5.5 cm in diameter which includes the saccular outpouchings. A single renal artery is identified to the right kidney. The kidney appears atrophic. The right renal artery demonstrates severe osteal stenosis. The left kidney contains 2 renal arteries. The superior renal artery originates at the proximal end of the aneurysm. The inferior left renal artery originates from the mid aneurysm. The celiac and superior mesenteric arteries are patent. BIFURCATION: Calcified but patent. There is mild aneurysmal enlargement of the origin of the right common iliac ar jael measuring 1.8 cm in diameter. RIGHT PELVIS: Severe calcific plaque is present throughout the right common and external iliac arteries. As indicat ed above there is aneurysmal enlargement at the origin of the right common iliac artery. The right ex ternal iliac artery contains moderate stenosis. Moderate stenosis is also noted in the proximal right common femoral artery/external iliac artery junction. LEFT PELVIS: Advanced calcific catheter scrubbed disease is seen in the left iliac system. The common iliac arteri es heavily calcified. The external iliac artery contains a high-grade stenosis just below its origin the stenosis is at least 8090%. Posterior plaque is identified in the left common femoral artery whic h is moderately stenotic. CONCLUSION: 1. Complex aneurysmal enlargement of the abdominal aorta extending from the renal arterial origins to the bifurcation and incorporating the inferior left renal artery. 2. Advanced calcific iliac disease with mild aneurysmal enlargement of the right common iliac artery and high grade stenosis in the proximal left external iliac artery. 3. Moderate disease in the common femoral arteries with moderate stenosis. 4. No significant nonvascular findings noted. Tunde Jimenez MD on October 26, 2016 at 13:00 Board Certified Radiologist. This report was verified electronically.
[2016-10-26] MEDS ORDERED: NEBULIZER1 MI1 (15:45)
[2016-10-26] MEDS ORDERED: guaiFENesin ER PO (15:45)
[2016-10-26] MEDS ORDERED: NEBUKIT5 (15:45)
[2016-10-26] MEDS ORDERED: NICO14DI23 T-DERMAL (15:45)
[2016-10-26] MEDS ORDERED: SPIRCAP INH (15:45)
[2016-10-26] MEDS ORDERED: IPRASOL NEB (15:45)
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
--- NOTE | 2016-10-26 15:56 | MB ---
cc: JHONNY MANZO MD DATE OF CONSULTATION 10/26/2016 CONSULTING PHYSICIAN / Candy, vascular surgery REASON FOR CONSULTATION Abdominal aortic aneurysm. HISTORY OF THE PRESENT ILLNESS A 70-year-old male with complex medical history presents with a chest pain that started about 12 hours ago and lasted for about 30 seconds and came back. The patient felt squeezing left side of the chest that was radiating to the left shoulder. On arrival he had no more chest pain. I was asked to see the patient because he has an abdominal aortic aneurysm known from August this year and he was supposed to follow up in October with his physician. PAST MEDICAL HISTORY Complex, is that of: 1. Coronary artery disease. 2. Pacemaker placement. 3. Severe COPD with home oxygen. 4. Hypertension. 5. Hyperlipidemia. PAST SURGICAL HISTORY Is that of pacemaker placement. MEDICATIONS Multiple including home oxygen. SOCIAL HISTORY The patient still smokes about pack a day of cigarettes and is essentially oblivious to the fact I am telling him to stop. PHYSICAL EXAMINATION GENERAL: Reveals a 70-year-old male normocephalic. HEENT: No trauma to the head. Pupils equally reactive. Extraocular muscles intact. NECK: Supple. Bilateral carotid pulses. No bruits. CHEST: Clear. Decreased breath sounds over the both chests. Severe COPD with some expiratory wheezing. Barrel-chested appearance and atrophy of the chest wall musculature consistent with advanced pulmonary cachexia. ABDOMEN: Obese, soft. Active bowel sounds. EXTREMITIES: The patient has palpable femoral pulses and distal pulses only by Doppler. Bilateral edema of the legs is present, especially below the level of the knee. Part of it is organized. BACK: Normal. NEUROLOGIC: The patient is grossly intact. IMPRESSION AND RECOMMENDATIONS 1. Patient with known coronary artery disease and chest pain. 2. Abdominal aortic aneurysm. I have reviewed the CTA I ordered today. The aneurysm remains stable. There is no leak or any suspicion of this being active. At this point it is reasonable to proceed with a cardiac workup as deemed necessary by the cardiology team. This gentleman by anatomical criteria would not be a candidate for endovascular abdominal aortic aneurysm repair considering that this is juxtarenal aneurysm and there is barely any neck to anchor endovascular graft. However, based on comorbidities of COPD, continuous smoking and tobacco abuse, need for home oxygen, shortness of breath and coronary artery disease at this point the patient is not a candidate for open aneurysm repair. This would be be associated with about 10-20% on table and early postoperative mortality and about 100% morbidity either from respiratory or cardiac causes and the patient would have a prolonged intubation and ventilatory time, at least if he ever came off the ventilator following this procedure. Thank you much referral. Critical care 40 minutes. Jhonny STEVENS /12:33 PM /3:37 PM ANA PAULA
[2016-10-26] MEDS ORDERED: RESP: ALBUTEROL 2.5 MG/IPRATROPIUM 0.5 MG NEB (SCH) NEB (16:00)
[2016-10-26] MEDS ORDERED: BUDESONIDE-FORMOTEROL 160/4.5 MCG INHALER INH SCH (21:00)
[2016-10-26] MEDS ORDERED: SODIUM CHLORIDE 0.9% FLUSH 10 ML FLUSH IV FLUSH SCH (21:00)
[2016-10-26] MEDS ORDERED: DOCUSATE SODIUM 50 MG/SENNA 8.6 MG TAB PO SCH (21:00)
[2016-10-26] MEDS ORDERED: CARVEDILOL 12.5 MG TAB PO SCH (21:00)
[2016-10-27] MEDS ORDERED: ASPIRIN 81 MG CHEW TAB CHEW SCH (09:00)
[2016-10-27] MEDS ORDERED: REMOVE OLD PATCH T-DERMAL SCH (09:00)
== END 2016-10-26 17:41 | disposition home or self-care (01) ==
LOC: NEPE 17:07 → NEDA 18:56 → NEPFCDU 20:09
PROVIDERS: ADMIT Hospitalist; ATTEND Hospitalist
DX: R07.9 Chest pain, unspecified (principal); F41.9 Anxiety disorder, unspecified; I71.4 Abdominal aortic aneurysm, without rupture; R09.02 Hypoxemia; E11.9 Type 2 diabetes mellitus without complications; J44.9 Chronic obstructive pulmonary disease, unspecified; I25.10 Atherosclerotic heart disease of native coronary artery without angina pectoris; I10 Essential (primary) hypertension; E78.5 Hyperlipidemia, unspecified; F17.210 Nicotine dependence, cigarettes, uncomplicated; Z95.0 Presence of cardiac pacemaker; Z95.5 Presence of coronary angioplasty implant and graft; Z79.84 Long term (current) use of oral hypoglycemic drugs
CPT/HCPCS: 71010; 74174; 80048; 82550; 82948; 83735; 84484; 85025; 85610; 85730; 93005; 94664; 96374; 96376; 97163; 97166; 99285; G0378; G8987; G8988; G8989; J2270; Q9967